=== PATIENT | female | born 1970 | race American Indian/Alaskan Native ===

== ENCOUNTER 2020-08-03 20:35 | Emergency (ER) | payer SELFPAY ==
[2020-08-03 20:55] VITALS: BP 139/110
[2020-08-03] MEDS ORDERED: NEOMY 3.5 MG/BACIT 400 UNITS/POLY B 5000 UNITS/GM OINT PACKET TP ONE (21:52)
[2020-08-03] MEDS ORDERED: cephALEXin 500 MG CAP PO ONE (21:52)
[2020-08-03] MEDS ORDERED: IBUPROFEN 800 MG TAB PO ONE (21:52)
[2020-08-03] MEDS ORDERED: DIPHtheria,PERTUSSIS(ACELL),TETANUS VACCINE/PF 0.5 ML VIAL IM ONE (22:07)
--- NOTE | 2020-08-03 22:09 | Emergency Department Report ---
- General Chief Complaint: Wound/Laceration Stated Complaint: FINGER INJURY Source: patient Mode of arrival: Ambulatory Limitations: No Limitations - History of Present Illness Initial Comments: Patient is a 49-year-old -[place]in[place] female with history of chronic pain and paresthesia who presents to the ED with complaint of acute onset persistent painful swollen right index finger due to an open wound that she sustained over 24 hours ago after a fall in the house and landing on a broken piece of glass which caused laceration of the right index finger. Patient states that she is not up-to-date with her tetanus vaccinations. Patient denies numbness and tingling or weakness of right index finger or right hand, or any other injuries. Patient denies dizziness, syncope, seizures, loss of consciousness, head or neck injuries, back pain, hip pain, chest pain or shortness of breath. -: Sudden, hour(s) (24) Location: other (right index finger laceration) Extremity Location: Right: Hand (right index finger laceration) Place: home Patient Tetanus UTD: No Context: accidental, fall, sharp object use Associated Symptoms: pain. denies: loss of feeling/numbness, suspect foreign body present, unable to move injured part, weakness followed by dizziness, nausea/vomiting, fever, other - Related Data Previous Rx's Medication Instructions Recorded Last Taken Type Ibuprofen [Motrin] 800 mg PO Q8HR PRN #30 tablet 08/03/20 Unknown Rx cephALEXin [Keflex] 500 mg PO Q6HR #40 capsule 08/03/20 Unknown Rx Allergies Allergy/AdvReac Type Severity Reaction Status Date / Time Sulfa (Sulfonamide Allergy Hives Verified 08/03/20 21:03 Antibiotics) ED Review of Systems ROS: Stated complaint: FINGER INJURY Other details as noted in HPI Constitutional: denies: chills, fever Eyes: denies: eye pain, eye discharge, vision change ENT: denies: ear pain, throat pain Respiratory: denies: cough, shortness of breath, wheezing Cardiovascular: denies: chest pain, palpitations Endocrine: no symptoms reported Gastrointestinal: denies: abdominal pain, nausea, diarrhea Genitourinary: denies: urgency, dysuria, discharge Musculoskeletal: arthralgia (right index finger pain, swelling due to open laceration), myalgia. denies: back pain, joint swelling Skin: other (Open laceration wound on right index finger with =pain). denies: rash, lesions Neurological: denies: headache, weakness, paresthesias Psychiatric: denies: anxiety, depression Hematological/Lymphatic: denies: easy bleeding, easy bruising ED Past Medical Hx - Past Medical History Previous Medical History?: Yes Hx Hypertension: Yes Additional medical history: Chronic Back pain - Surgical History Past Surgical History?: No - Social History Smoking Status: Former Smoker Substance Use Type: None - Medications Home Medications: Home Medications Medication Instructions Recorded Confirmed Last Taken Type Ibuprofen [Motrin] 800 mg PO Q8HR PRN #30 tablet 08/03/20 Unknown Rx cephALEXin [Keflex] 500 mg PO Q6HR #40 capsule 08/03/20 Unknown Rx ED Physical Exam - General Limitations: No Limitations General appearance: alert, in no apparent distress - Head Head exam: Present: atraumatic, normocephalic, normal inspection - Eye Eye exam: Present: normal appearance, PERRL, EOMI Pupils: Present: normal accommodation - ENT ENT exam: Present: normal exam, normal orophraynx, mucous membranes moist, TM's normal bilaterally, normal external ear exam - Neck Neck exam: Present: normal inspection, full ROM - Respiratory Respiratory exam: Present: normal lung sounds bilaterally. Absent: respiratory distress, wheezes, rales, rhonchi, chest wall tenderness, accessory muscle use, decreased breath sounds - Cardiovascular Cardiovascular Exam: Present: regular rate, normal rhythm, normal heart sounds. Absent: systolic murmur, diastolic murmur, rubs, gallop - GI/Abdominal GI/Abdominal exam: Present: soft, normal bowel sounds. Absent: tenderness, rebound, hyperactive bowel sounds, organomegaly - Extremities Exam Extremities exam: Present: normal inspection, full ROM, tenderness (Palpable right index finger tenderness due to an open wound with mild swelling), normal capillary refill, joint swelling - Back Exam Back exam: Present: normal inspection, full ROM. Absent: tenderness, CVA tenderness (R), muscle spasm, paraspinal tenderness, vertebral tenderness - Neurological Exam Neurological exam: Present: alert, oriented X3, CN II-XII intact, normal gait, reflexes normal - Psychiatric Psychiatric exam: Present: normal affect, normal mood - Skin Skin exam: Present: warm, dry, intact, normal color, other (Open laceration wound with tenderness on right index finger and mild swelling). Absent: rash ED Course Vital Signs 08/03/20 20:52 Temperature 98.8 F Pulse Rate 95 H Respiratory 18 Rate Blood Pressure 139/110 O2 Sat by Pulse 99 Oximetry ED Medical Decision Making - Medical Decision Making This is a 49-year-old -[place]in[place] female with history of chronic pain and paresthesia who presents to the ED with complaint of acute onset persistent painful swollen right index finger due to an open wound that she sustained over 24 hours ago after a fall in the house and landing on a broken piece of glass which caused laceration of the right index finger. Patient states that she is not up-to-date with her tetanus vaccinations. In the ED, patient is alert and oriented x3 and is not in distress. Patient was treated for pain in the ED and also had topical antibiotic applied to the right index finger. The wound was then dressed appropriately the patient was discharged home on pain medication and prophylactic antibiotics, and was advised to follow-up with her primary care physician in 7 to 10 days for reevaluation or return to the ED immediately if symptoms get worse. - Differential Diagnosis Cellulitis; puncture wound; finger sprain; finger laceration Critical care attestation.: If time is entered above; I have spent that time in minutes in the direct care of this critically ill patient, excluding procedure time. ED Disposition Clinical Impression: Laceration of right index finger w/o foreign body w/o damage to nail Qualifiers: Encounter type: initial encounter Qualified Code(s): S61.210A - Laceration without foreign body of right index finger without damage to nail, initial encounter Infected puncture wound of right index finger Qualifiers: Encounter type: initial encounter Qualified Code(s): S61.230A - Puncture wound without foreign body of right index finger without damage to nail, initial encounter; L08.9 - Local infection of the skin and subcutaneous tissue, unspec ified Disposition: DC-01 TO HOME OR SELFCARE Is pt being admited?: No Does the pt Need Aspirin: No Condition: Stable Instructions: Cellulitis (ED), Finger Laceration (ED), Puncture Wound (ED) Additional Instructions: Take medication with food, drink plenty of fluids and follow-up with your primary care physician in 7 to 10 days for reevaluation. Return to the ED immediately if symptoms get worse. Prescriptions: cephALEXin [Keflex] 500 mg PO Q6HR #40 capsule Ibuprofen [Motrin] 800 mg PO Q8HR PRN #30 tablet PRN Reason: Pain , Severe (7-10) Referrals: [facility] [Outside] - 3-5 Days Time of Disposition: 22:08 Print Language: MACEDONIAN
== END 2020-08-03 22:50 | disposition home or self-care (01) ==
LOC: ED 20:35
DX: S61.210A Laceration without foreign body of right index finger without damage to nail, initial encounter (principal); S61.230A Puncture wound without foreign body of right index finger without damage to nail, initial encounter; I10 Essential (primary) hypertension; Z87.891 Personal history of nicotine dependence; Z79.1 Long term (current) use of non-steroidal anti-inflammatories (NSAID); Z79.899 Other long term (current) drug therapy; Z88.2 Allergy status to sulfonamides; W19.XXXA Unspecified fall, initial encounter; Y93.89 Activity, other specified; Y92.89 Other specified places as the place of occurrence of the external cause; Y99.8 Other external cause status
CPT/HCPCS: 29130; 90471; 90715; 99283; A6250